=== PATIENT | male | born 2000 | race African-American/Black ===

== ENCOUNTER 2021-03-24 15:05 | Emergency (ER) | payer OTHER ==
[~2021-03-24] VITALS: Ht 170.2 cm; Wt 72.8 kg
--- NOTE | 2021-03-24 16:10 | REP ---
INDICATION: dislocation/pain COMPARISON: None. TECHNIQUE: AP, lateral, bilateral oblique views right 3rd digit. FINDINGS: Dorsal dislocation at the level of the proximal interphalangeal joint noted. No obvious fracture. IMPRESSION: Dislocation at the 3rd digit proximal interphalangeal joint.. <Electronically signed by Clarence Patino > 03/24/21 [id number]
[2021-03-24] MEDS ORDERED: LIDOCAINE 1% MDV 20ML VIAL SC ONE (17:00)
[2021-03-24 18:30] VITALS: BP 115/67
--- NOTE | 2021-03-24 19:27 | REP ---
INDICATION: post relocation xray COMPARISON: None. TECHNIQUE: AP, lateral, bilateral oblique views right 3rd digit. FINDINGS: Splint in place and there is satisfactory reduction at the interphalangeal joint. No acute fracture is identified. IMPRESSION: Satisfactory reduction. No acute fracture identified. <Electronically signed by Clarence Patino > 03/24/21 [id number]
== END 2021-03-24 18:33 | disposition home or self-care (01) ==
LOC: M ED 15:05
DX: S63.252A Unspecified dislocation of right middle finger, initial encounter (principal); X58.XXXA Exposure to other specified factors, initial encounter; Y92.89 Other specified places as the place of occurrence of the external cause

== ENCOUNTER 2021-08-30 11:26 | Emergency (ER) | payer OTHER ==
[~2021-08-30] VITALS: Ht 170.2 cm; Wt 68.2 kg
[2021-08-30 11:27] VITALS: BP 118/57
[2021-08-30] MEDS ORDERED: Toradol IM (11:36)
== END 2021-08-30 13:53 | disposition left against medical advice (07) ==
LOC: M ED 11:26
DX: Z53.29 Procedure and treatment not carried out because of patient's decision for other reasons (principal)